=== PATIENT | male | born 1960 | race Caucasian/White ===

== ENCOUNTER 2018-12-06 11:24 | Observation (INO) | payer OTHER ==
[~2018-12-06] VITALS: Ht 182.9 cm; Wt 81.7 kg
[~2018-12-06 11:24] MED LIST: CHOLESTEROL MED; [UNRECOGNIZED DRUG - REMARK]
[2018-12-06 12:16] LABS: BASOPHILS ABSOLUTE AUTO 0.09 K/mm3 (0.00-0.23); BASOPHILS PERCENT AUTO 1 % (0-2); EOSINOPHILS ABSOLUTE AUTO 0.13 K/mm3 (0.00-0.68); EOSINOPHILS PERCENT AUTO 2 % (0-6); Hemoglobin 16.1 g/dL (13.5-17.5); IMMATURE GRAN ABSOLUTE AUTO 0.07 K/mm3 (0.00-0.10); IMMATURE GRAN PERCENT AUTO 1 % (0-1); LYMPHOCYTES ABSOLUTE AUTO 3.24 K/mm3 (0.84-5.20); LYMPHOCYTES PERCENT AUTO 42 % (21-46); MONOCYTES ABSOLUTE AUTO 0.53 K/mm3 (0.16-1.47); MONOCYTES PERCENT AUTO 7 % (4-13); Mean Corpuscular HGB 34.9 pg (26.0-34.0); Mean Corpuscular HGB Conc 35.8 g/dL (31.5-36.5); Mean Corpuscular Volume 98 fL (80-100); Mean Platelet Volume 9.8 fL (9.1-12.4); NEUTROPHILS ABSOLUTE AUTO 3.74 K/mm3 (1.96-9.15); NEUTROPHILS PERCENT AUTO 48 % (41-73); Platelet Count 269 K/mm3 (150-400); RDW Coefficient Variation 12.9 % (11.7-14.2); RDW Standard Deviation 46.7 fL (35.1-46.3); Red Blood Cell Count 4.61 M/mm3 (4.30-5.90)
[2018-12-06 12:18] LABS: Source, Urine Clean Catch
[2018-12-06 12:27] LABS: Bilirubin, Urine Neg (Neg); Blood, Urine Neg (Neg); Glucose Qualitative, Urine Neg (Neg); Ketones, Urine Neg (Neg); Leukocyte Esterase, Urine Neg (Neg); Nitrite, Urine Neg (Neg); Protein, Urine Neg (Neg); Urobilinogen, Urine NORM (Normal)
[2018-12-06 12:41] LABS: Appearance, Urine Clear (Clear); Color, Urine Pale Yellow (P-Yellow)
[2018-12-06 12:42] LABS: U Amphetamine Screen Not Detected; U Barbituate Screen Not Detected; U Benzodiazapine Screen Not Detected; U Buprenorphine Screen Not Detected; U Cannabinoids Screen DETECTED; U Cocaine Screen Not Detected; U Methadone Screen Not Detected; U Methamphetamine Screen Not Detected; U Opiates Screen Not Detected; U Oxycodone Screen Not Detected; U Phencyclidine Screen Not Detected; U Propoxyphene Screen Not Detected
[2018-12-06 12:42] LABS: Alanine Aminotransfer (ALT/SGP 35 U/L (12-78); Albumin, Blood 3.9 g/dL (3.4-5.0); Albumin/Globulin Ratio 1.2 (0.8-1.8); Alk Phos 107 U/L (50-136); Anion Gap 12 mmol/L (6-16); Aspartate Aminotrans (AST/SGOT 35 U/L (12-37); Bilirubin, Total 0.3 mg/dL (0.1-1.0); Blood Urea Nitrogen 7 mg/dL (8-24); Bun/Creatinine Ratio 12.6 (12.0-20.0); CO2, Blood 25 mmol/L (21-32); Chloride, Blood 100 mmol/L (98-108); Creatinine, Blood 0.56 mg/dL (0.60-1.20); Ethanol (Alcohol), Blood, Med 300 mg/dL; Globulin, Blood 3.3 g/dL (2.2-4.0); Glomerular Filtration Rate >60 (60-); Glucose, Blood 92 mg/dL (70-99); Potassium, Blood 2.9 mmol/L (3.5-5.5); Salicylate 4.2 mg/dL (2.8-20.0); Sodium, Blood 137 mmol/L (136-145); Total Protein, Blood 7.2 g/dL (6.4-8.2)
[2018-12-06 12:48] LABS: Acetaminophen, Random <2.0 ug/mL (10.0-30.0)
[2018-12-06 18:06] LABS: Potassium, Blood 3.2 mmol/L (3.5-5.5)
[2018-12-07 07:37] LABS: Anion Gap 9 mmol/L (6-16); Blood Urea Nitrogen 11 mg/dL (8-24); CO2, Blood 26 mmol/L (21-32); Chloride, Blood 106 mmol/L (98-108); Creatinine, Blood 0.65 mg/dL (0.60-1.20); Ethanol (Alcohol), Blood, Med <3 mg/dL; Glomerular Filtration Rate >60 (60-); Glucose, Blood 100 mg/dL (70-99); Potassium, Blood 3.6 mmol/L (3.5-5.5); Sodium, Blood 141 mmol/L (136-145)
== END 2018-12-07 09:18 | disposition home or self-care (01) ==
LOC: ER 11:24 → EOR 11:25
PROVIDERS: Emergency Medicine; ADMIT Emergency Medicine
DX: F32.9 Major depressive disorder, single episode, unspecified (principal); F10.129 Alcohol abuse with intoxication, unspecified; E87.6 Hypokalemia; I10 Essential (primary) hypertension; E78.5 Hyperlipidemia, unspecified; F17.200 Nicotine dependence, unspecified, uncomplicated; Y90.8 Blood alcohol level of 240 mg/100 ml or more; Z79.899 Other long term (current) drug therapy
CPT/HCPCS: 36415; 80048; 80053; 81003; 84132; 84443; 85025; G0480

== ENCOUNTER 2025-04-06 08:56 | Emergency (ER) | payer OTHER ==
[~2025-04-06] VITALS: Ht 180.3 cm; Wt 77.1 kg
[2025-04-06] MEDS ORDERED: Ketorolac Tromethamine 30mg Vial IV ONE (09:55)
[2025-04-06] MEDS ORDERED: CHLO25B PO (10:20)
[2025-04-06] MEDS ORDERED: ATOR40TA PO (10:20)
[2025-04-06] MEDS ORDERED: Vitamin D1000 UNI1 PO (10:21)
[2025-04-06] MEDS ORDERED: Voltaren100 GM (10:21)
[2025-04-06] MEDS ORDERED: GABA100 PO (10:22)
[2025-04-06] MEDS ORDERED: ESCI20 PO (10:22)
[2025-04-06] MEDS ORDERED: GABA300 PO (10:22)
[2025-04-06] MEDS ORDERED: Flonase 0.05% N16 GM (10:22)
[2025-04-06] MEDS ORDERED: TRAZ100 PO (10:23)
[2025-04-06] MEDS ORDERED: MULVITA (10:23)
[2025-04-06] MEDS ORDERED: TAMS.4ER PO (10:23)
[2025-04-06] MEDS ORDERED: HYDRA25 PO (10:23)
[2025-04-06 11:10] LABS: BASOPHILS ABSOLUTE AUTO 0.07 K/mm3 (0.00-0.23); BASOPHILS PERCENT AUTO 1 % (0-2); EOSINOPHILS ABSOLUTE AUTO 0.24 K/mm3 (0.00-0.68); EOSINOPHILS PERCENT AUTO 2 % (0-6); Hematocrit 44.9 % (37.0-53.0); Hemoglobin 15.8 g/dL (13.5-17.5); IMMATURE GRAN ABSOLUTE AUTO 0.12 K/mm3 (0.00-0.10); IMMATURE GRAN PERCENT AUTO 1 % (0-1); LYMPHOCYTES ABSOLUTE AUTO 3.21 K/mm3 (0.84-5.20); LYMPHOCYTES PERCENT AUTO 23 % (21-46); MONOCYTES ABSOLUTE AUTO 1.06 K/mm3 (0.16-1.47); MONOCYTES PERCENT AUTO 7 % (4-13); Mean Corpuscular HGB 31.9 pg (26.0-34.0); Mean Corpuscular HGB Conc 35.2 g/dL (31.5-36.5); Mean Corpuscular Volume 91 fL (80-100); NEUTROPHILS ABSOLUTE AUTO 9.56 K/mm3 (1.96-9.15); NEUTROPHILS PERCENT AUTO 67 % (41-73); Platelet Count 233 K/mm3 (150-400); RDW Coefficient Variation 13.1 % (11.7-14.2); RDW Standard Deviation 42.9 fL (35.1-46.3); Red Blood Cell Count 4.96 M/mm3 (4.30-5.90); White Blood Cell Count 14.26 K/mm3 (4.00-11.30)
[2025-04-06 11:23] LABS: Albumin, Blood 3.6 g/dL (3.4-5.0); Albumin/Globulin Ratio 1.2 (0.8-1.8); Bilirubin, Total 0.4 mg/dL (0.1-1.0); Bun/Creatinine Ratio 16.2 (12.0-20.0); Calcium, Blood 8.7 mg/dL (8.5-10.1); Creatinine, Blood 0.86 mg/dL (0.60-1.20); Globulin, Blood 3.1 g/dL (2.2-4.0); Potassium, Blood 3.7 mmol/L (3.5-5.5); Total Protein, Blood 6.7 g/dL (6.4-8.2)
[2025-04-13] MEDS ORDERED: PRED20 PO (11:43)
[2025-04-13] MEDS ORDERED: AMLO10 PO (11:43)
== END 2025-04-06 13:25 | disposition home or self-care (01) ==
LOC: ER 08:56
PROVIDERS: Student in an Organized Health Care Education/Training Program
DX: I44.2 Atrioventricular block, complete (principal); I49.2 Junctional premature depolarization; M54.9 Dorsalgia, unspecified; G89.29 Other chronic pain; I10 Essential (primary) hypertension; E78.5 Hyperlipidemia, unspecified; G47.33 Obstructive sleep apnea (adult) (pediatric); N40.0 Benign prostatic hyperplasia without lower urinary tract symptoms; F17.210 Nicotine dependence, cigarettes, uncomplicated; Z79.899 Other long term (current) drug therapy
CPT/HCPCS: 71045; 80053; 83735; 84484; 85025; 86618; 93005; 93010; 93306; 96374; 99285-25; J1885

== ENCOUNTER 2025-04-14 07:05 | Day surgery (SDC) | payer OTHER ==
[~2025-04-14] VITALS: Ht 180.3 cm; Wt 77.1 kg
[2025-04-14] VITALS (13 sets, daily range): BP systolic 98–130; BP diastolic 64–91
[~2025-04-14 07:05] MED LIST changes: +AMLO10 PO; +ATOR40TA PO; +CHLO25B PO; +ESCI20 PO; +Flonase 0.05% N16 GM; +GABA100 PO; +GABA300 PO; +HYDRA25 PO; +MULVITA; +PRED20 PO; +TAMS.4ER PO; +TRAZ100 PO; +Vitamin D1000 UNI1 PO; +Voltaren100 GM
[2025-04-14] MEDS ORDERED: CeFAZolin Sodium 1000 mg Vial ONE ×2 (07:28→13:47)
[2025-04-14] MEDS ORDERED: Bupivacaine 0.5% HCl 5 MG/ML 30MLVIAL ONE (07:28)
[2025-04-14] MEDS ORDERED: Heparin Sodium 1000 Units/ML 10ML MDV ONE (07:28)
[2025-04-14] MEDS ORDERED: NS 1,000 ML IV ONE ×2 (07:28→07:45)
[2025-04-14] MEDS ORDERED: CeFAZolin Sodium 2,000 MG VIAL ONE (07:43)
[2025-04-14] MEDS ORDERED: Midazolam HCl 1MG / ML 2ML Vial ONE ×2 (07:44→08:23)
[2025-04-14] MEDS ORDERED: FentaNYL Citrate 50 MCG/ML 2 ML Injection ONE ×2 (07:44→08:23)
[2025-04-14] MEDS ORDERED: NS 50 ML IV ONE (07:45)
--- NOTE | 2025-04-14 10:12 | NUR ---
PT RETURNED TO RECOVERY ROOM IN BED. LACW SITE SOFT WITH NO HEMATOMA, NO BLEEDING AND WELL APPROXIMATED INCISION. PT DESCRIBES "SORENESS TO L SHOULDER/LACW SITE. PT DRINKING COFFEE. CALL LIGHT IN REACH. PT DENIES CHEST PAIN.
--- NOTE | 2025-04-14 10:39 | NUR ---
UPON ARRIVAL TO RECOVERY ROOM PT HAD/HAS LEFT ARM SLING IN PLACE WITH ICE BAG OVER LACW SITE. NO CHANGES TO LACW SITE.
--- NOTE | 2025-04-14 10:58 | NUR ---
NO CHANGES TO LACW SITE.
--- NOTE | 2025-04-14 11:25 | NUR ---
NO CHANGES TO LACW SITE.
[2025-04-14] MEDS ORDERED: Acetaminophen/Codeine 300-30 mg PO PRN (11:30)
--- NOTE | 2025-04-14 12:26 | NUR ---
LEFT ARM SLING REMOVED AND LEFT ARM SHOULDER IMMOBILIZER PLACED. NO CHANGES TO LACW SITE.
--- NOTE | 2025-04-14 12:36 | NUR ---
DR MÁRQUEZ IN ROOM TO SEE PT. DR MÁRQUEZ STATES HE REVIEWED 2V XRAY; STATED OK TO DC AFTER 1400 ANCEF.
--- NOTE | 2025-04-14 13:20 | NUR ---
NO CHANGES TO LACW SITE.
[2025-04-14] MEDS ORDERED: NS 0 ML IV ONE (13:48)
[2025-04-14] MEDS ORDERED: NS 100 ML IV ONE (13:49)
[2025-04-14] MEDS ORDERED: CeFAZolin Sodium 1,000 MG in NS 50 ML IV SCH (14:00)
--- NOTE | 2025-04-14 14:29 | NUR ---
NO CHANGES TO LACW SITE. DISCHARGE INSTRUCTIONS REVIEWED ALL QUESTIONS ANSWERED.20 IV DISCONTINUED FROM L AC WITH INTACT CANNULA. PT ESCORTED OUT VIA WHEELCHAIR ESCORT.
== END 2025-04-14 14:30 | disposition home or self-care (01) ==
LOC: MHTC 07:05
DX: I44.2 Atrioventricular block, complete (principal); R00.1 Bradycardia, unspecified; I49.2 Junctional premature depolarization
CPT/HCPCS: 33208; 71046; 93005; 93010; 99152; 99153; A9270; C1785; C1898; J0690; J1644; J2250; J3010; J7030; J7040; Q9967